=== PATIENT | male | born 1960 | race Caucasian/White ===

== ENCOUNTER 2017-07-08 05:15 | Inpatient (IN) | payer BC ==
[~2017-07-08] VITALS: Ht 185.4 cm; Wt 116.7 kg
[~2017-07-08 05:15] MED LIST: AMLO10TA2 PO; CHOL200024 PO; FENO145T32 PO; FURO20TA3 PO; HYDR-882 PO; IBUP-1223 PO; LOSA100T6 PO; METO-93 PO; METO-99 PO; MULT1TAB9 PO; PANT40TA5 PO; POTA8TAB6 PO
[2017-07-08] MEDS ORDERED: LACTATED RINGERS 1,000 ML IV SCH (05:30)
[2017-07-08] MEDS ORDERED: VANCOMYCIN PER PHARMACY MC ONE (05:30)
[2017-07-08] MEDS ORDERED: GABAPENTIN 300 MG CAPSULE PO ONE ×2 (05:30→07:00)
[2017-07-08] MEDS ORDERED: ACETAMINOPHEN 500 MG TABLET PO ONE (05:30)
[2017-07-08 05:48] VITALS: BP 164/103
[2017-07-08] MEDS ORDERED: VANCOMYCIN 2,000 MG in SODIUM CHLORIDE 0.9% 500 ML IV ONE (06:00)
[2017-07-08] MEDS ORDERED: MIDAZOLAM 1 MG/ML, 2ML ONE (06:23)
[2017-07-08] MEDS ORDERED: FENTANYL PF 250 MCG/5ML ONE (06:23)
[2017-07-08] MEDS ORDERED: TRANEXAMIC ACID 100 MG/ML, 10ML ONE ×2 (06:26)
[2017-07-08] MEDS ORDERED: VANCOMYCIN 1,000 MG ONE (06:26)
[2017-07-08] MEDS ORDERED: KETOROLAC 60 MG/2 ML ONE (06:26)
[2017-07-08] MEDS ORDERED: ROPIvacaine/PF 0.5%, 30 ML ONE (06:26)
[2017-07-08] MEDS ORDERED: SODIUM CHLORIDE 0.9% 100 ML ONE (06:26)
[2017-07-08] MEDS ORDERED: EPINEPHRINE 1 MG/ML, 1ML ONE (06:27)
[2017-07-08] MEDS ORDERED: hydrALAzine 20 MG/ML, 1ML IV PRN (07:00)
[2017-07-08] MEDS ORDERED: OXYcodone 5 MG/5 ML ORAL.SOL UDC PO PRN (07:00)
[2017-07-08] MEDS ORDERED: HYDROcodone/APAP 5/325 TABLET PO PRN (07:00)
[2017-07-08] MEDS ORDERED: ACETAMINOPHEN 650 MG/20.3 ML UDC PO PRN (07:00)
[2017-07-08] MEDS ORDERED: ONDANSETRON 2MG/ML, 2ML IVPush PRN (07:00)
[2017-07-08] MEDS ORDERED: HYDROcodone/APAP 7.5-325MG/15ML UDC PO PRN (07:00)
[2017-07-08] MEDS ORDERED: DIPHENHYDRAMINE 50 MG CAPSULE PO PRN (07:00)
[2017-07-08] MEDS ORDERED: ZOLPIDEM 5MG TABLET PO PRN (07:00)
[2017-07-08] MEDS ORDERED: BISACODYL 10 MG SUPP PR PRN (07:00)
[2017-07-08] MEDS ORDERED: ONDANSETRON 4 MG TABLET PO PRN (07:00)
[2017-07-08] MEDS ORDERED: SENNA/DOCUSATE TABLET PO PRN (07:00)
[2017-07-08] MEDS ORDERED: morphine SULFATE 10 MG/ML, 1ML IV PRN (07:00)
[2017-07-08] MEDS ORDERED: LABETALOL 5MG/ML, 20ML IV PRN (07:00)
[2017-07-08] MEDS ORDERED: ONDANSETRON 2MG/ML, 2ML IV PRN (07:00)
[2017-07-08] MEDS ORDERED: PROMETHAZINE 25 MG/ML, 1ML IV PRN (07:00)
[2017-07-08] MEDS ORDERED: MAGNESIUM HYDROXIDE 8%, 30ML UDC PO PRN (07:00)
[2017-07-08] MEDS ORDERED: OXYcodone IR 5MG TABLET PO PRN (07:00)
[2017-07-08] MEDS ORDERED: OxyconTIN ER 20 MG TAB.ER PO ONE (07:00)
[2017-07-08] MEDS ORDERED: SCOPOLAMINE PATCH, 1.5MG PATCH.TD72 TD ONE (07:00)
[2017-07-08] MEDS ORDERED: ONDANSETRON 2MG/ML, 2ML ONE (07:20)
[2017-07-08] MEDS ORDERED: LIDOCAINE-MPF 2% ,5ML ONE ×2 (07:20)
[2017-07-08] MEDS ORDERED: BUPIVACAINE/PF 0.25% ONE (07:20)
[2017-07-08] MEDS ORDERED: DEXAMETHASONE 4 MG/ML, 1ML ONE ×2 (07:20)
[2017-07-08] MEDS ORDERED: SUCCINYLCHOLINE 20 MG/ML, 10ML ONE (07:20)
[2017-07-08] MEDS ORDERED: CEFAZOLIN 1,000 MG ONE ×2 (07:21)
[2017-07-08] MEDS ORDERED: PROPOFOL 10 MG/ML, 20ML ONE (07:57)
[2017-07-08] MEDS ORDERED: LABETALOL 5MG/ML, 20ML ONE (07:57)
[2017-07-08] MEDS ORDERED: FENTANYL PF 100 MCG/2ML ONE (08:34)
[2017-07-08] MEDS ORDERED: OXYcodone 5 MG/5 ML ORAL.SOL UDC ONE (08:34)
[2017-07-08] MEDS: FENTANYL PF 100 MCG/2ML IV PRN ×2 (08:36→08:41)
[2017-07-08] MEDS ORDERED: HYDROmorphone 2 MG/ML, 1ML ONE (08:36)
[2017-07-08] MEDS: HYDROmorphone 1 MG/ML, 1ML IV PRN ×2 (08:46→08:50)
[2017-07-08] MEDS ORDERED: PANTOPROZOLE 40MG TABLET PO SCH (09:00)
[2017-07-08] MEDS ORDERED: LOSARTAN 50MG TABLET PO SCH (09:00)
[2017-07-08] MEDS ORDERED: METOPROLOL SUCCINATE 50 MG TAB.ER.24H PO SCH (09:00)
[2017-07-08] MEDS ORDERED: AMLODIPINE 5 MG TABLET PO SCH (09:00)
[2017-07-08] MEDS ORDERED: DOCUSATE 100 MG CAPSULE PO SCH (09:00)
[2017-07-08] MEDS ORDERED: POTASSIUM CHLORIDE 8 MEQ TABLET.ER PO SCH (09:00)
[2017-07-08] MEDS ORDERED: FUROSEMIDE 20 MG TABLET PO SCH (09:00)
[2017-07-08] MEDS ORDERED: NS + 20MEQ KCL 1,000 ML IV SCH (10:00)
[2017-07-08] MEDS ORDERED: CEFAZOLIN PMX 2GM/50ML 50 ML IVPB SCH (13:00)
[2017-07-08 13:04] VITALS: BP 127/77
[2017-07-08] MEDS ORDERED: ASPIRIN 81 MG TABLET EC PO SCH (18:00)
[2017-07-08] MEDS ORDERED: FENOFIBRATE 145 MG TABLET PO SCH (21:00)
[2017-07-09] MEDS ORDERED: DEXAMETHASONE 4 MG/ML, 1ML IVPush SCH (06:00)
== END 2017-07-08 14:45 | disposition home or self-care (01) | DRG 470 ==
LOC: OUT 05:15 → ORIP 06:45 → 4NOR 09:34 → DCLOUNGE 14:38
PROVIDERS: ADMIT Orthopaedic Surgery; ATTEND Orthopaedic Surgery
PROC: 0SRD0J9 Replacement of Left Knee Joint with Synthetic Substitute, Cemented, Open Approach (ICD-10-PCS; principal; 2017-07-08 07:00)
DX: M17.12 Unilateral primary osteoarthritis, left knee (principal); I10 Essential (primary) hypertension; Z96.652 Presence of left artificial knee joint; K21.9 Gastro-esophageal reflux disease without esophagitis
CPT/HCPCS: J0171; J0690; J1100; J1170; J1885; J2250; J2405; J2704; J2795; J3010; J3370; J3490; J0330; J7040; J7120

== ENCOUNTER 2017-09-02 05:22 | Inpatient (IN) | payer BC ==
[~2017-09-02] VITALS: Ht 185.4 cm; Wt 126.4 kg
[2017-09-02] MEDS ORDERED: ACETAMINOPHEN 500 MG TABLET PO ONE (06:00)
[2017-09-02] MEDS ORDERED: VANCOMYCIN PER PHARMACY MC PRN (06:00)
[2017-09-02] MEDS ORDERED: GABAPENTIN 300 MG CAPSULE PO ONE (06:00)
[2017-09-02] MEDS ORDERED: MIDAZOLAM 1 MG/ML, 2ML ONE (06:12)
[2017-09-02] MEDS ORDERED: FENTANYL PF 250 MCG/5ML ONE (06:13)
[2017-09-02] MEDS ORDERED: ROPIvacaine/PF 0.5%, 30 ML ONE (06:16)
[2017-09-02] MEDS ORDERED: TRANEXAMIC ACID 100 MG/ML, 10ML ONE ×2 (06:16)
[2017-09-02] MEDS ORDERED: VANCOMYCIN 1,000 MG ONE (06:16)
[2017-09-02] MEDS ORDERED: KETOROLAC 60 MG/2 ML ONE (06:16)
[2017-09-02] MEDS ORDERED: EPINEPHRINE 1 MG/ML, 1ML ONE (06:17)
[2017-09-02] MEDS ORDERED: SODIUM CHLORIDE 0.9% 100 ML ONE (06:17)
[2017-09-02] MEDS: LACTATED RINGERS 1,000 ML IV SCH ×4 (06:25→19:31)
[2017-09-02] MEDS ORDERED: OxyconTIN ER 10 MG TAB.ER PO ONE (06:30)
[2017-09-02] MEDS ORDERED: VANCOMYCIN 2,000 MG in SODIUM CHLORIDE 0.9% 500 ML IV ONE (06:30)
[2017-09-02] MEDS ORDERED: PHARMACOKINETIC CONSULTATION MC ONE (06:30)
[2017-09-02] MEDS ORDERED: ROCURONIUM 10 MG/ML,10ML ONE (06:45)
[2017-09-02] MEDS ORDERED: DEXAMETHASONE 4 MG/ML, 1ML ONE ×2 (06:53)
[2017-09-02] MEDS ORDERED: CEFAZOLIN 1,000 MG ONE ×2 (06:54)
[2017-09-02] MEDS ORDERED: ZOLPIDEM 5MG TABLET PO PRN (07:00)
[2017-09-02] MEDS ORDERED: OXYcodone IR 5MG TABLET PO PRN (07:00)
[2017-09-02] MEDS ORDERED: DIPHENHYDRAMINE 50 MG CAPSULE PO PRN (07:00)
[2017-09-02] MEDS ORDERED: HYDROcodone/APAP 5/325 TABLET PO PRN (07:00)
[2017-09-02] MEDS ORDERED: ONDANSETRON 2MG/ML, 2ML IV PRN (07:00)
[2017-09-02] MEDS ORDERED: SENNA/DOCUSATE TABLET PO PRN (07:00)
[2017-09-02] MEDS ORDERED: ACETAMINOPHEN 650 MG/20.3 ML UDC PO PRN (07:00)
[2017-09-02] MEDS ORDERED: MAGNESIUM HYDROXIDE 8%, 30ML UDC PO PRN (07:00)
[2017-09-02] MEDS ORDERED: BISACODYL 10 MG SUPP PR PRN (07:00)
[2017-09-02] MEDS ORDERED: SCOPOLAMINE PATCH, 1.5MG PATCH.TD72 TD ONE (07:00)
[2017-09-02] MEDS: CEFAZOLIN PMX 2GM/50ML 50 ML IVPB SCH ×2 (07:00→18:55)
[2017-09-02] MEDS ORDERED: ONDANSETRON 4 MG TABLET PO PRN (07:00)
[2017-09-02] MEDS ORDERED: HYDROmorphone 1 MG/ML, 1ML IV PRN (07:00)
[2017-09-02] MEDS ORDERED: BUPIVACAINE/PF 0.25% ONE (07:01)
[2017-09-02] MEDS ORDERED: PROPOFOL 10 MG/ML, 20ML ONE (07:01)
[2017-09-02] MEDS ORDERED: LABETALOL 5MG/ML, 20ML IV PRN (07:30)
[2017-09-02] MEDS ORDERED: PROMETHAZINE 12.5 MG SUPP PR PRN (07:30)
[2017-09-02] MEDS ORDERED: MEPERIDINE/PF 25MG/0.5ML IVPush PRN (07:30)
[2017-09-02] MEDS ORDERED: ONDANSETRON ODT 8 MG PO PRN (07:30)
[2017-09-02] MEDS ORDERED: hydrALAzine 20 MG/ML, 1ML IV PRN (07:30)
[2017-09-02] MEDS ORDERED: OXYcodone 5 MG/5 ML ORAL.SOL UDC PO PRN (07:30)
[2017-09-02] MEDS ORDERED: BUPIVACAINE/PF 0.5% ONE (07:41)
[2017-09-02] MEDS ORDERED: ONDANSETRON 2MG/ML, 2ML ONE (07:41)
[2017-09-02] MEDS ORDERED: FENTANYL PF 100 MCG/2ML ONE (08:17)
[2017-09-02] MEDS: FENTANYL PF 100 MCG/2ML IV PRN ×2 (08:18→08:27)
[2017-09-02] MEDS ORDERED: HYDROmorphone 2 MG/ML, 1ML ONE (08:30)
[2017-09-02] MEDS: HYDROmorphone 2 MG/ML, 1ML IV PRN ×4 (08:39→17:50)
[2017-09-02] MEDS ORDERED: OXYcodone 5 MG/5 ML ORAL.SOL UDC ONE (08:51)
[2017-09-02 09:15] VITALS: BP 112/64
[2017-09-02] MEDS: DOCUSATE 100 MG CAPSULE PO SCH ×2 (13:07→20:56)
[2017-09-02] MEDS: FUROSEMIDE 20 MG TABLET PO SCH (13:08)
[2017-09-02] MEDS: AMLODIPINE 5 MG TABLET PO SCH (13:09)
[2017-09-02] MEDS: PANTOPROZOLE 40MG TABLET PO SCH (13:09)
[2017-09-02] MEDS: METOPROLOL SUCCINATE 50 MG TAB.ER.24H PO SCH (13:10)
[2017-09-02] MEDS: POTASSIUM CHLORIDE 8 MEQ TABLET.ER PO SCH (13:10)
[2017-09-02] MEDS: NS + 20MEQ KCL 1,000 ML IV SCH ×2 (13:11→19:03)
[2017-09-02] MEDS: LOSARTAN 50MG TABLET PO SCH (14:00)
[2017-09-02] MEDS: ASPIRIN 81 MG TABLET EC PO SCH (17:54)
[2017-09-02 19:46] VITALS: BP 135/83
[2017-09-02] MEDS ORDERED: FENOFIBRATE 145 MG TABLET PO SCH (21:00)
[2017-09-02 23:49] VITALS: BP 146/86
[2017-09-03] MEDS ORDERED: CEFAZOLIN PMX 2GM/50ML 50 ML IVPB ONE (03:00)
[2017-09-03 04:50] VITALS: BP 149/97
[2017-09-03] MEDS ORDERED: DEXAMETHASONE 4 MG/ML, 1ML IVPush SCH (06:00)
[2017-09-03] MEDS: ASPIRIN 81 MG TABLET EC PO SCH (06:20)
[2017-09-03] MEDS: NS + 20MEQ KCL 1,000 ML IV SCH (06:21)
[2017-09-03 08:13] VITALS: BP 150/81
[2017-09-03] MEDS: LOSARTAN 50MG TABLET PO SCH (09:16)
[2017-09-03] MEDS: POTASSIUM CHLORIDE 8 MEQ TABLET.ER PO SCH (09:16)
[2017-09-03] MEDS: FUROSEMIDE 20 MG TABLET PO SCH (09:16)
[2017-09-03] MEDS: PANTOPROZOLE 40MG TABLET PO SCH (09:17)
[2017-09-03] MEDS: DOCUSATE 100 MG CAPSULE PO SCH (09:17)
[2017-09-03] MEDS: METOPROLOL SUCCINATE 50 MG TAB.ER.24H PO SCH (09:17)
[2017-09-03] MEDS: AMLODIPINE 5 MG TABLET PO SCH (09:17)
[2017-09-03] MEDS ORDERED: MELO7.5T31 PO (12:57)
[2017-09-03] MEDS ORDERED: OXYC5TAB3 PO (12:57)
[2017-09-03] MEDS ORDERED: TRAM50TA2 PO (12:58)
[2017-09-03 13:32] VITALS: BP 131/78
== END 2017-09-03 13:40 | disposition home or self-care (01) | DRG 470 ==
LOC: OUT 05:22 → ORIP 06:33 → 4NOR 09:16
PROVIDERS: ADMIT Orthopaedic Surgery; ATTEND Orthopaedic Surgery
PROC: 0SRC069 Replacement of Right Knee Joint with Oxidized Zirconium on Polyethylene Synthetic Substitute, Cemented, Open Approach (ICD-10-PCS; principal; 2017-09-02 07:00)
DX: M17.0 Bilateral primary osteoarthritis of knee (principal); M21.162 Varus deformity, not elsewhere classified, left knee; Z79.82 Long term (current) use of aspirin
CPT/HCPCS: 36415; 85014; 85018; C1713; J0171; J0690; J1100; J1170; J1885; J2250; J2405; J2704; J2795; J3010; J3370; J3490; C1776; J7040; J7120

== ENCOUNTER 2017-11-25 12:05 | Inpatient (IN) | payer BC, OTHER ==
[~2017-11-25] VITALS: Ht 185.4 cm; Wt 131.0 kg
[~2017-11-25 12:05] MED LIST changes: -AMLO10TA2 PO; +AMLO10TA6 PO; -LOSA100T6 PO; +LOSA100T7 PO; +MELO7.5T31 PO; +OXYC5TAB3 PO; +TRAM50TA2 PO
[2017-11-25] MEDS ORDERED: HYDROmorphone 2 MG/ML, 1ML IVPush PRN (13:30)
[2017-11-25] MEDS ORDERED: SODIUM CHLORIDE FLUSH 10ML SYR IVF ONE (13:30)
[2017-11-25] MEDS ORDERED: PLEASE ENTER HEIGHT AND WEIGHT MC SCH (13:30)
[2017-11-25 13:32] LABS: BASOPHILS # (AUTO) 0.01 x10^3/uL (0-0.1); BASOPHILS % (AUTO) 0 % (0-1); EOSINOPHILS # (AUTO) 0.01 x10^3/uL (0-0.4); EOSINOPHILS % (AUTO) 0 % (1-7); LYMPHOCYTES # (AUTO) 1.11 x10^3/uL (1-3.4); LYMPHOCYTES % (AUTO) 7 % (22-44); MD NO; MEAN CORPUSCULAR HEMOGLOBIN 28.7 pg (27.5-34.5); MEAN CORPUSCULAR HGB CONC 33.4 g/dL (33.2-36.2); MEAN CORPUSCULAR VOLUME 85.9 fL (81-97); MEAN PLATELET VOLUME 10.1 fL (7.4-10.4); MONOCYTES # (AUTO) 0.76 x10^3/uL (0.2-0.8); MONOCYTES % (AUTO) 5 % (2-9); NEUTROPHILS # (AUTO) 14.39 x10^3/uL (1.8-6.8); NEUTROPHILS % (AUTO) 88 % (42-75); PLATELET COUNT 266 x10^3/uL (130-400); RED BLOOD COUNT 4.71 x10^6/uL (4.38-5.82); RED CELL DISTRIBUTION WIDTH 14.5 % (9.4-14.8)
[2017-11-25 13:33] LABS: ALBUMIN 3.8 g/dL (3.4-5.0); ANION GAP 6 mmol/L (5-15); CHLORIDE 107 mmol/L (98-107); CREATININE 0.75 mg/dL (0.7-1.3)
[2017-11-25] MEDS ORDERED: DOCUSATE 100 MG CAPSULE PO PRN (17:00)
[2017-11-25] MEDS ORDERED: ACETAMINOPHEN 325 MG TABLET PO PRN (17:00)
[2017-11-25] MEDS ORDERED: BISACODYL 10 MG SUPP PR PRN (17:00)
[2017-11-25] MEDS ORDERED: POLYETHYLENE GLYCOL 17 GM PACKET PO PRN (17:00)
[2017-11-25] MEDS ORDERED: ONDANSETRON 2MG/ML, 2ML IVPush PRN (17:00)
[2017-11-25] MEDS ORDERED: ENALAPRILAT 1.25 MG/ML, 2ML IVPush PRN (17:00)
[2017-11-25] MEDS ORDERED: ONDANSETRON ODT 4 MG PO PRN (17:00)
[2017-11-25 17:22] LABS: INTERNATIONAL NORMALIZED RATIO 0.99 (0.93-1.1); PROTHROMBIN TIME 10.2 Seconds (9.6-11.5)
[2017-11-25 17:30] VITALS: BP 152/88
[2017-11-25] MEDS: SODIUM CHLORIDE 0.9% 1,000 ML IV SCH (18:33)
[2017-11-25 19:28] VITALS: BP 135/67
[2017-11-25] MEDS: FENOFIBRATE 145 MG TABLET PO SCH (21:03)
[2017-11-25] MEDS: morphine SULFATE 10 MG/ML, 1ML IVPush PRN ×2 (21:04→21:24)
[2017-11-25] MEDS: HYDROcodone/APAP 5/325 TABLET PO PRN ×2 (21:24→22:19)
[2017-11-25 22:47] LABS: MICROSCOPIC NOT IND
[2017-11-25] MEDS ORDERED: MELATONIN 3 MG TABLET PO ONE (23:00)
[2017-11-25 23:01] LABS: CULTURE INDICATED? NO
[2017-11-26 01:42] VITALS: BP 129/88
[2017-11-26] MEDS: SODIUM CHLORIDE 0.9% 1,000 ML IV SCH (04:09)
[2017-11-26 05:12] LABS: BASOPHILS # (AUTO) 0.01 x10^3/uL (0-0.1); BASOPHILS % (AUTO) 0 % (0-1); EOSINOPHILS # (AUTO) 0.38 x10^3/uL (0-0.4); EOSINOPHILS % (AUTO) 3 % (1-7); LYMPHOCYTES # (AUTO) 1.29 x10^3/uL (1-3.4); LYMPHOCYTES % (AUTO) 11 % (22-44); MD NO; MEAN CORPUSCULAR HEMOGLOBIN 28.3 pg (27.5-34.5); MEAN CORPUSCULAR HGB CONC 33.2 g/dL (33.2-36.2); MEAN CORPUSCULAR VOLUME 85.2 fL (81-97); MEAN PLATELET VOLUME 9.6 fL (7.4-10.4); MONOCYTES # (AUTO) 0.58 x10^3/uL (0.2-0.8); MONOCYTES % (AUTO) 5 % (2-9); NEUTROPHILS # (AUTO) 9.91 x10^3/uL (1.8-6.8); NEUTROPHILS % (AUTO) 82 % (42-75); PLATELET COUNT 226 x10^3/uL (130-400); RED BLOOD COUNT 4.32 x10^6/uL (4.38-5.82); RED CELL DISTRIBUTION WIDTH 14.4 % (9.4-14.8)
[2017-11-26 05:19] LABS: CHLORIDE 109 mmol/L (98-107)
[2017-11-26 05:23] LABS: ANION GAP 8 mmol/L (5-15); CALCIUM 8.4 mg/dL (8.5-10.1)
[2017-11-26 07:21] VITALS: BP 129/84
[2017-11-26] MEDS: LOSARTAN 50MG TABLET PO SCH (08:29)
[2017-11-26] MEDS: PANTOPROZOLE 40MG TABLET PO SCH (08:29)
[2017-11-26] MEDS: MULTIVITAMINS WITH IRON TABLET PO SCH (08:29)
[2017-11-26] MEDS: HYDROcodone/APAP 5/325 TABLET PO PRN (08:29)
[2017-11-26] MEDS: METOPROLOL SUCCINATE 50 MG TAB.ER.24H PO SCH (08:29)
[2017-11-26] MEDS: AMLODIPINE 10 MG TAB PO SCH (08:29)
[2017-11-26] MEDS: CHOLECALCIFEROL 1,000 UNIT TABLET PO SCH (08:29)
[2017-11-26] MEDS ORDERED: TRANEXAMIC ACID 100 MG/ML, 10ML ONE ×2 (11:25)
[2017-11-26] MEDS ORDERED: KETOROLAC 60 MG/2 ML ONE (11:25)
[2017-11-26] MEDS ORDERED: ROPIvacaine/PF 0.5%, 30 ML ONE (11:26)
[2017-11-26] MEDS ORDERED: EPINEPHRINE 1 MG/ML, 1ML ONE (11:26)
[2017-11-26] MEDS ORDERED: VANCOMYCIN 1,000 MG ONE (11:26)
[2017-11-26] MEDS ORDERED: SODIUM CHLORIDE 0.9% 100 ML ONE (11:26)
[2017-11-26] MEDS ORDERED: MIDAZOLAM 1 MG/ML, 2ML ONE (12:03)
[2017-11-26] MEDS ORDERED: FENTANYL PF 250 MCG/5ML ONE ×2 (12:03→12:33)
[2017-11-26] MEDS ORDERED: ONDANSETRON 2MG/ML, 2ML ONE (12:06)
[2017-11-26] MEDS ORDERED: SUCCINYLCHOLINE 20 MG/ML, 10ML ONE (12:06)
[2017-11-26] MEDS ORDERED: GLYCOPYRROLATE 0.2MG/1ML, 5ML ONE (12:06)
[2017-11-26] MEDS ORDERED: NEOSTIGMINE 1 MG/ML, 10ML ONE (12:06)
[2017-11-26] MEDS ORDERED: ROCURONIUM 10MG/ML,5ML ONE (12:44)
[2017-11-26] MEDS ORDERED: DEXAMETHASONE 4 MG/ML, 1ML ONE ×2 (12:44)
[2017-11-26] MEDS ORDERED: PROPOFOL 10 MG/ML, 20ML ONE (12:44)
[2017-11-26] MEDS ORDERED: LIDOCAINE GEL 2%, 5ML ONE (12:46)
[2017-11-26] MEDS ORDERED: ACETAMINOPHEN 325 MG TABLET PO PRN (13:00)
[2017-11-26] MEDS ORDERED: ONDANSETRON ODT 8 MG PO PRN (13:00)
[2017-11-26] MEDS ORDERED: hydrALAzine 20 MG/ML, 1ML IV PRN (13:00)
[2017-11-26] MEDS ORDERED: EPHEDRINE 50 MG/ML, 1ML IVPush PRN (13:00)
[2017-11-26] MEDS ORDERED: FENTANYL PF 100 MCG/2ML IV PRN (13:00)
[2017-11-26] MEDS ORDERED: LORazepam 2 MG/ML, 1ML IVPush PRN (13:00)
[2017-11-26] MEDS ORDERED: OXYcodone 5 MG/5 ML ORAL.SOL UDC PO PRN (13:00)
[2017-11-26] MEDS ORDERED: MEPERIDINE/PF 25MG/0.5ML IVPush PRN (13:00)
[2017-11-26] MEDS ORDERED: MIDAZOLAM 1 MG/ML, 2ML IV PRN (13:00)
[2017-11-26] MEDS ORDERED: LABETALOL 5MG/ML, 20ML IV PRN (13:00)
[2017-11-26] MEDS ORDERED: ALBUTEROL SULFATE 2.5 MG/3 ML NPPB PRN (13:00)
[2017-11-26] MEDS ORDERED: HYDROmorphone 1 MG/ML, 1ML IV PRN (13:00)
[2017-11-26] MEDS ORDERED: MORPHINE SULFATE 4 MG/ML, 1ML IVPush PRN (13:00)
[2017-11-26] MEDS ORDERED: PROMETHAZINE 25 MG/ML, 1ML IV PRN ×2 (13:00)
[2017-11-26] MEDS ORDERED: ONDANSETRON 2MG/ML, 2ML IV PRN (13:00)
[2017-11-26] MEDS ORDERED: PROMETHAZINE 12.5 MG SUPP PR PRN (13:00)
[2017-11-26] MEDS ORDERED: CEFAZOLIN PMX 2GM/50ML 50 ML IVPB SCH (13:30)
[2017-11-26] MEDS ORDERED: FENTANYL PF 100 MCG/2ML ONE (13:44)
[2017-11-26] MEDS ORDERED: OXYcodone 5 MG/5 ML ORAL.SOL UDC ONE (14:03)
[2017-11-26] MEDS ORDERED: LABETALOL 5MG/ML, 20ML ONE (14:14)
[2017-11-26] MEDS ORDERED: POTASSIUM CHLORIDE 40 MEQ in SODIUM CHLORIDE 0.9% 500 ML IV ONE (15:00)
[2017-11-26 20:37] VITALS: BP 129/69
[2017-11-26] MEDS: CEFAZOLIN 2,000 MG in SODIUM CHLORIDE 0.9% 50 ML IVPB SCH (21:01)
[2017-11-26] MEDS: FENOFIBRATE 145 MG TABLET PO SCH (21:01)
[2017-11-27 00:32] VITALS: BP 128/72
[2017-11-27 04:17] VITALS: BP 144/77
[2017-11-27 05:34] LABS: ALBUMIN 2.7 g/dL (3.4-5.0); ANION GAP 5 mmol/L (5-15); CALCIUM 8.2 mg/dL (8.5-10.1); CHLORIDE 109 mmol/L (98-107); CREATININE 0.67 mg/dL (0.7-1.3)
[2017-11-27 05:47] LABS: BASOPHILS # (AUTO) 0.04 x10^3/uL (0-0.1); BASOPHILS % (AUTO) 0 % (0-1); EOSINOPHILS % (AUTO) 0 % (1-7); LYMPHOCYTES # (AUTO) 1.56 x10^3/uL (1-3.4); LYMPHOCYTES % (AUTO) 10 % (22-44); MD NO; MEAN CORPUSCULAR HGB CONC 33.8 g/dL (33.2-36.2); MEAN CORPUSCULAR VOLUME 85.9 fL (81-97); MEAN PLATELET VOLUME 10.1 fL (7.4-10.4); MONOCYTES # (AUTO) 1.23 x10^3/uL (0.2-0.8); MONOCYTES % (AUTO) 8 % (2-9); NEUTROPHILS # (AUTO) 12.74 x10^3/uL (1.8-6.8); NEUTROPHILS % (AUTO) 82 % (42-75); PLATELET COUNT 212 x10^3/uL (130-400); RED BLOOD COUNT 3.56 x10^6/uL (4.38-5.82); RED CELL DISTRIBUTION WIDTH 14.7 % (9.4-14.8)
[2017-11-27] MEDS: HYDROcodone/APAP 5/325 TABLET PO PRN ×3 (06:15→19:42)
[2017-11-27] MEDS: CEFAZOLIN 2,000 MG in SODIUM CHLORIDE 0.9% 50 ML IVPB SCH (06:15)
[2017-11-27 07:07] VITALS: BP 144/76
[2017-11-27] MEDS: LOSARTAN 50MG TABLET PO SCH (08:13)
[2017-11-27] MEDS: MULTIVITAMINS WITH IRON TABLET PO SCH (08:13)
[2017-11-27] MEDS: ASPIRIN 81 MG TABLET CHEW PO SCH ×3 (08:14→19:42)
[2017-11-27] MEDS: CHOLECALCIFEROL 1,000 UNIT TABLET PO SCH (08:14)
[2017-11-27] MEDS: PANTOPROZOLE 40MG TABLET PO SCH (08:14)
[2017-11-27] MEDS: AMLODIPINE 10 MG TAB PO SCH (08:15)
[2017-11-27] MEDS: METOPROLOL SUCCINATE 50 MG TAB.ER.24H PO SCH (08:23)
[2017-11-27 13:06] LABS: BASOPHILS # (AUTO) 0.04 x10^3/uL (0-0.1); BASOPHILS % (AUTO) 0 % (0-1); EOSINOPHILS # (AUTO) 0.09 x10^3/uL (0-0.4); EOSINOPHILS % (AUTO) 1 % (1-7); LYMPHOCYTES # (AUTO) 1.29 x10^3/uL (1-3.4); LYMPHOCYTES % (AUTO) 10 % (22-44); MD NO; MEAN CORPUSCULAR HEMOGLOBIN 28.7 pg (27.5-34.5); MEAN CORPUSCULAR HGB CONC 33.4 g/dL (33.2-36.2); MEAN PLATELET VOLUME 9.6 fL (7.4-10.4); MONOCYTES # (AUTO) 0.87 x10^3/uL (0.2-0.8); MONOCYTES % (AUTO) 7 % (2-9); NEUTROPHILS % (AUTO) 82 % (42-75); PLATELET COUNT 214 x10^3/uL (130-400); RED BLOOD COUNT 3.48 x10^6/uL (4.38-5.82); RED CELL DISTRIBUTION WIDTH 15.1 % (9.4-14.8)
[2017-11-27 13:40] VITALS: BP 133/83
[2017-11-27 19:11] VITALS: BP 152/79
[2017-11-27] MEDS: FENOFIBRATE 145 MG TABLET PO SCH (19:42)
[2017-11-28] MEDS: HYDROcodone/APAP 5/325 TABLET PO PRN ×4 (02:02→17:32)
[2017-11-28 02:42] VITALS: BP 139/83
[2017-11-28 05:17] LABS: ALBUMIN 2.6 g/dL (3.4-5.0); ANION GAP 5 mmol/L (5-15); CALCIUM 8.2 mg/dL (8.5-10.1); CHLORIDE 107 mmol/L (98-107)
[2017-11-28 05:23] LABS: BASOPHILS # (AUTO) 0.02 x10^3/uL (0-0.1); BASOPHILS % (AUTO) 0 % (0-1); EOSINOPHILS # (AUTO) 0.35 x10^3/uL (0-0.4); EOSINOPHILS % (AUTO) 3 % (1-7); LYMPHOCYTES # (AUTO) 1.84 x10^3/uL (1-3.4); LYMPHOCYTES % (AUTO) 13 % (22-44); MD NO; MEAN CORPUSCULAR HEMOGLOBIN 28.2 pg (27.5-34.5); MEAN CORPUSCULAR HGB CONC 33.3 g/dL (33.2-36.2); MEAN CORPUSCULAR VOLUME 84.8 fL (81-97); MEAN PLATELET VOLUME 9.7 fL (7.4-10.4); MONOCYTES # (AUTO) 1.09 x10^3/uL (0.2-0.8); MONOCYTES % (AUTO) 8 % (2-9); NEUTROPHILS # (AUTO) 11.02 x10^3/uL (1.8-6.8); NEUTROPHILS % (AUTO) 77 % (42-75); PLATELET COUNT 208 x10^3/uL (130-400); RED BLOOD COUNT 3.56 x10^6/uL (4.38-5.82)
[2017-11-28 08:13] VITALS: BP 159/84
[2017-11-28] MEDS: AMLODIPINE 10 MG TAB PO SCH (09:03)
[2017-11-28] MEDS: METOPROLOL SUCCINATE 50 MG TAB.ER.24H PO SCH (09:03)
[2017-11-28] MEDS: ASPIRIN 81 MG TABLET CHEW PO SCH (09:03)
[2017-11-28] MEDS: MULTIVITAMINS WITH IRON TABLET PO SCH (09:04)
[2017-11-28] MEDS: CHOLECALCIFEROL 1,000 UNIT TABLET PO SCH (09:04)
[2017-11-28] MEDS: PANTOPROZOLE 40MG TABLET PO SCH (09:04)
[2017-11-28] MEDS: LOSARTAN 50MG TABLET PO SCH (09:04)
[2017-11-28 11:29] LABS: MICROSCOPIC AUTO
[2017-11-28 11:37] LABS: CULTURE INDICATED? NO
[2017-11-28 13:23] VITALS: BP 118/66
[2017-11-28 14:41] VITALS: BP 131/75
[2017-11-28 15:46] LABS: BASOPHILS # (AUTO) 0.03 x10^3/uL (0-0.1); BASOPHILS % (AUTO) 0 % (0-1); EOSINOPHILS # (AUTO) 0.27 x10^3/uL (0-0.4); EOSINOPHILS % (AUTO) 2 % (1-7); LYMPHOCYTES # (AUTO) 2.03 x10^3/uL (1-3.4); LYMPHOCYTES % (AUTO) 15 % (22-44); MD SCAN; MEAN CORPUSCULAR HEMOGLOBIN 28.4 pg (27.5-34.5); MEAN CORPUSCULAR HGB CONC 33.1 g/dL (33.2-36.2); MEAN CORPUSCULAR VOLUME 85.7 fL (81-97); MEAN PLATELET VOLUME 9.6 fL (7.4-10.4); MONOCYTES # (AUTO) 1.19 x10^3/uL (0.2-0.8); MONOCYTES % (AUTO) 9 % (2-9); NEUTROPHILS # (AUTO) 10.15 x10^3/uL (1.8-6.8); NEUTROPHILS % (AUTO) 74 % (42-75); PLATELET COUNT 214 x10^3/uL (130-400); RED BLOOD COUNT 3.46 x10^6/uL (4.38-5.82); RED CELL DISTRIBUTION WIDTH 14.5 % (9.4-14.8)
[2017-11-28 16:16] VITALS: BP 129/82
[2017-11-28] MEDS ORDERED: ASPI-515 PO (16:39)
[2017-11-28] MEDS ORDERED: DOCU-131 PO (16:39)
[2017-11-28 17:35] VITALS: BP 130/81
== END 2017-11-28 18:43 | disposition home or self-care (01) | DRG 470 ==
LOC: ED 13:18 → EDIP 16:19 → 4NOR 17:25
PROVIDERS: ADMIT Internal Medicine; ATTEND Internal Medicine
PROC: 0SRB06A Replacement of Left Hip Joint with Oxidized Zirconium on Polyethylene Synthetic Substitute, Uncemented, Open Approach (ICD-10-PCS; principal; 2017-11-26 12:00)
DX: S72.002A Fracture of unspecified part of neck of left femur, initial encounter for closed fracture (principal); D64.9 Anemia, unspecified; D72.829 Elevated white blood cell count, unspecified; E66.9 Obesity, unspecified; Z68.38 Body mass index [BMI] 38.0-38.9, adult; E78.5 Hyperlipidemia, unspecified; E86.0 Dehydration; E87.6 Hypokalemia; I10 Essential (primary) hypertension; K21.9 Gastro-esophageal reflux disease without esophagitis; W01.0XXA Fall on same level from slipping, tripping and stumbling without subsequent striking against object, initial encounter; Y99.0 Civilian activity done for income or pay; Y92.89 Other specified places as the place of occurrence of the external cause; Z80.0 Family history of malignant neoplasm of digestive organs; Z80.3 Family history of malignant neoplasm of breast; Z87.891 Personal history of nicotine dependence; Z96.642 Presence of left artificial hip joint; Z96.653 Presence of artificial knee joint, bilateral
CPT/HCPCS: 36415; 72170; 73501; 73552; 76001; 99285; J3490; 71045; 72192; 80048; 81001; 81003; 82040; 85018; 85025; 85610; 87040; 93005; C1713; G0378; J0171; J0690; J1100; J1885; J2250; J2405; J2704; J2710; J2795; J3010; J3370; J3480; C1776; J0330; J2270; J7030; J7040

== ENCOUNTER → 2018-06-06 | Outpatient (CLI) | payer OTHER ==
[~2018-06-06] MED LIST changes: -AMLO10TA6 PO; +AMLO10TA8 PO; +ASPI-515 PO; +DOCU-131 PO; +HYDR-3653 PO; -HYDR-882 PO; +LOSA100T14 PO; -LOSA100T7 PO
== END | disposition home or self-care (01) ==
LOC: CFH 15:42
PROVIDERS: ATTEND Physician Assistant
DX: N28.1 Cyst of kidney, acquired (principal); I10 Essential (primary) hypertension; K21.9 Gastro-esophageal reflux disease without esophagitis; E78.5 Hyperlipidemia, unspecified; Z79.899 Other long term (current) drug therapy
CPT/HCPCS: 76770

== ENCOUNTER → 2019-05-21 | Outpatient (CLI) | payer BC | END | disposition home or self-care (01) | LOC: CFH 15:57 | PROVIDERS: ATTEND Nurse Practitioner Family | DX: M47.817 Spondylosis without myelopathy or radiculopathy, lumbosacral region (principal); M48.07 Spinal stenosis, lumbosacral region; M48.05 Spinal stenosis, thoracolumbar region; G95.89 Other specified diseases of spinal cord; M53.3 Sacrococcygeal disorders, not elsewhere classified | CPT/HCPCS: 72114 ==